=== PATIENT | male | born 1935 | race Caucasian/White ===

== ENCOUNTER 2021-11-11 15:58 | Emergency (ER) | payer MEDICARE, OTHER ==
[2021-11-11] MEDS ORDERED: HYDROmorphone 0.5 MG/0.5 ML Syringe IVPUSH ONE (16:05)
[2021-11-11 16:12] VITALS: BP 170/105; PULSE 66
[2021-11-11] MEDS: Sodium Chloride 0.9% 10 ML Syringe FLUSH PRN ×3 (16:25→16:57)
[2021-11-11] MEDS ORDERED: Ondansetron 4 MG/2 ML SDV IVPUSH ONE (16:28)
[2021-11-11] MEDS ORDERED: Ketorolac 30 MG/ML SDV IVPUSH ONE (16:44)
[2021-11-11] MEDS ORDERED: Acetaminophen/HYDROcodone 325-5 MG Tab PO ONE (17:36)
== END 2021-11-11 17:55 | disposition home or self-care (01) ==
LOC: DL.ED 15:58
DX: S49.91XA Unspecified injury of right shoulder and upper arm, initial encounter (principal); J45.909 Unspecified asthma, uncomplicated; E03.9 Hypothyroidism, unspecified; Z88.8 Allergy status to other drugs, medicaments and biological substances; Z79.82 Long term (current) use of aspirin; Z79.899 Other long term (current) drug therapy; W00.0XXA Fall on same level due to ice and snow, initial encounter
CPT/HCPCS: 73030; 96374; 96375; 99283; A9270; J1170; J1885; J2405

== ENCOUNTER 2024-10-02 21:06 | Emergency (ER) | payer MEDICARE, OTHER ==
[2024-10-02 21:05] VITALS: BP 159/83; PULSE 62
[2024-10-02 21:50] LABS: HEMATOCRIT 36.3 % (40.0-54.0); HEMOGLOBIN 11.8 g/dL (14.0-18.0); MEAN CORPUSCULAR HEMOGLOBIN 30.9 pg (27.0-34.0); MEAN CORPUSCULAR HGB CONC 32.5 g/dL (33.0-35.0); PLATELET COUNT,PLT 194 10^3/uL (150-450); RED BLOOD CELL COUNT 3.82 10^6/uL (4.6-6.2); WHITE BLOOD CELL COUNT,WBC 6.1 10^3/uL (5.0-10.0)
[2024-10-02 21:51] LABS: EOSINOPHILS PERCENT AUTO 6.2 % (1.0-3.0); LYMPHOCYTES PERCENT AUTO 40.9 % (20.5-50.1); MONOCYTES PERCENT AUTO 11.1 % (2-8)
[2024-10-02 21:58] LABS: PROTHROMBIN TIME 10.7 SEC (9.0-12.0); PTT,PARTIAL THROMBOPLSTIN TIME 24.2 SEC (22.0-34.0)
[2024-10-02 22:01] LABS: A/G RATIO 1.1; ALBUMIN 3.5 g/dL (3.4-5.0); ANION GAP 14.5 mEq/L (7-13); BILIRUBIN TOTAL 0.3 mg/dL (0.2-1.0); BUN/CREATININE RATIO 14.5 (No establ ref range); CALCIUM 8.8 mg/dL (8.5-10.1); CREATININE 1.52 mg/dL (0.70-1.30); EST CRCL DRUG DOSING (CG) 31.48 mL/min; MAGNESIUM 2.1 mg/dL (1.8-2.4); POTASSIUM,K 4.5 mmol/L (3.5-5.1); PROTEIN TOTAL,TP 6.6 g/dL (6.4-8.2)
[2024-10-02 22:44] LABS: EOSINOPHILS PERCENT MAN 8 % (1-3); LYMPHOCYTES PERCENT MAN 38 % (20-50); MONOCYTES PERCENT MAN 12 % (2-8); SEG NEUTROPHILS PERCENT MAN 42 % (42-75)
== END 2024-10-02 23:15 | disposition home or self-care (01) ==
LOC: DL.ED 21:06
DX: R07.89 Other chest pain (principal); J45.909 Unspecified asthma, uncomplicated; E03.9 Hypothyroidism, unspecified; Z88.8 Allergy status to other drugs, medicaments and biological substances; Z79.82 Long term (current) use of aspirin; Z79.890 Hormone replacement therapy; Z79.899 Other long term (current) drug therapy
CPT/HCPCS: 36415; 71045; 80053; 83735; 84484; 85025; 85610; 85730; 93005; 99285

== ENCOUNTER 2024-11-03 23:18 | Emergency (ER) | payer MEDICARE, OTHER ==
[2024-11-03] MEDS ORDERED: Nitroglycerin 0.4 MG Tab.SL ONE (23:26)
[2024-11-03] MEDS: Nitroglycerin 0.4 MG Tab.SL SL ONE (23:30)
[2024-11-03 23:37] LABS: HEMOGLOBIN 11.2 g/dL (14.0-18.0); MEAN CORPUSCULAR HEMOGLOBIN 30.6 pg (27.0-34.0); MEAN CORPUSCULAR VOLUME 95.6 fL (80-100); PLATELET COUNT,PLT 196 10^3/uL (150-450); RED BLOOD CELL COUNT 3.66 10^6/uL (4.6-6.2); WHITE BLOOD CELL COUNT,WBC 6.3 10^3/uL (5.0-10.0)
[2024-11-03 23:51] LABS: EOSINOPHILS PERCENT MAN 6 % (1-3); LYMPHOCYTES PERCENT MAN 52 % (20-50); MONOCYTES PERCENT MAN 8 % (2-8); SEG NEUTROPHILS PERCENT MAN 34 % (42-75)
[2024-11-03 23:54] LABS: A/G RATIO 1.3; ALANINE AMINOTRANSFERASE,ALT 24 U/L (16-63); ALBUMIN 3.4 g/dL (3.4-5.0); ALKALINE PHOSPHATASE 87 U/L (46-116); ANION GAP 12.1 mEq/L (7-13); ASPARTATE AMNIOTRANSFERASE,AST 16 U/L (15-37); BILIRUBIN TOTAL 0.3 mg/dL (0.2-1.0); BLOOD UREA NITROGEN,BUN 18 mg/dL (7-18); BUN/CREATININE RATIO 12.3 (No establ ref range); CALCIUM 8.7 mg/dL (8.5-10.1); CARBON DIOXIDE,CO2 29 mmol/L (21-32); CHLORIDE,CL 105 mmol/L (98-107); CREATININE 1.46 mg/dL (0.70-1.30); ESTIMATED GFR 46 mL/min (>=60); GLUCOSE RANDOM 147 mg/dL (70-99); MAGNESIUM 2.1 mg/dL (1.8-2.4); POTASSIUM,K 4.1 mmol/L (3.5-5.1); PROTEIN TOTAL,TP 6.1 g/dL (6.4-8.2); SODIUM,NA 142 mmol/L (136-145)
[2024-11-04 03:53] VITALS: PULSE 56
[2024-11-04] MEDS: Heparin Sodium 5,000 Units/ML Vial IVPUSH ONE (04:16)
[2024-11-04] MEDS: Heparin Sodium/0.45% NaCl 25,000 UNITS/500 ML BAG IV SCH (04:17)
[2024-11-04] MEDS: Nitroglycerin 0.4 MG Tab.SL SL ONE (04:50)
[2024-11-04 05:03] VITALS: BP 168/88
== END 2024-11-04 04:55 ==
LOC: DL.ED 23:18
DX: I21.4 Non-ST elevation (NSTEMI) myocardial infarction (principal); E03.9 Hypothyroidism, unspecified; Z79.890 Hormone replacement therapy; Z88.8 Allergy status to other drugs, medicaments and biological substances
CPT/HCPCS: 36415; 71045; 80053; 83735; 84484; 85025; 85730; 93005; 96365; 99285; A9270; J1644